=== PATIENT | female | born 1960 ===

== ENCOUNTER 2021-04-27 09:36 | Day surgery (SDC) | payer OTHER ==
[2021-04-26 11:46] VITALS: BMI 31.4
[2021-04-27] MEDS ORDERED: Ketorolac Tromethamine 30 MG/ML VIAL ONE (10:09)
[2021-04-27] MEDS ORDERED: Fentanyl 100 MCG/2 ML VIAL ONE (10:26)
[2021-04-27] MEDS ORDERED: Bupivacaine 0.25% HCL 30 ML VIAL ONE (10:27)
[2021-04-27] MEDS ORDERED: Lidocaine 1% w/Epinephrine 1:100K 20 ML VIAL ONE (10:27)
[2021-04-27] MEDS ORDERED: Dexamethasone 20 MG/5 ML VIAL ONE (10:47)
[2021-04-27] MEDS ORDERED: Ondansetron PF 4 MG/2 ML Vial ONE (10:47)
[2021-04-27] MEDS ORDERED: PROPOFOL 200 MG/20 ML VIAL ONE (10:47)
[2021-04-27] MEDS ORDERED: Lidocaine 1% PF 5 ML VIAL ONE (10:47)
[2021-04-27] MEDS ORDERED: Morphine 2 MG/ML VIAL ONE ×2 (11:46→12:19)
== END 2021-04-27 13:30 | disposition home or self-care (01) ==
LOC: SDC 09:36
PROVIDERS: ATTEND Surgery
PROC: 02HV33Z Insertion of Infusion Device into Superior Vena Cava, Percutaneous Approach (ICD-10-PCS; principal; 2021-04-27)
DX: C50.912 Malignant neoplasm of unspecified site of left female breast (principal); G43.909 Migraine, unspecified, not intractable, without status migrainosus; E66.9 Obesity, unspecified; Z68.31 Body mass index [BMI] 31.0-31.9, adult; Z79.899 Other long term (current) drug therapy
CPT/HCPCS: 71045; C1788; J0690; J1100; J1642; J1885; J2270; J2405; J2704; J3010; S0020

== ENCOUNTER 2021-08-27 09:52 | Day surgery (SDC) | payer SELFPAY ==
[2021-08-27] MEDS ORDERED: Sodium Chloride 0.9% 10 ML ONE (10:02)
[2021-08-27] MEDS ORDERED: diphenhydrAMINE 25 MG CAP PO SCH (10:30)
[2021-08-27] MEDS ORDERED: Acetaminophen 500 MG TAB PO SCH (10:30)
[2021-08-27] MEDS ORDERED: Acetaminophen 500 MG TAB ONE (10:53)
[2021-08-27] MEDS ORDERED: diphenhydrAMINE 25 MG CAP ONE (10:53)
[2021-08-27 13:45] VITALS: BP 138/71; TEMP 98.8
== END 2021-08-27 13:45 | disposition home or self-care (01) ==
LOC: ONC/OP 09:52
PROVIDERS: ATTEND Internal Medicine Hematology & Oncology
PROC: 30233N1 Transfusion of Nonautologous Red Blood Cells into Peripheral Vein, Percutaneous Approach (ICD-10-PCS; principal; 2021-08-27)
DX: D64.9 Anemia, unspecified (principal); D69.6 Thrombocytopenia, unspecified
CPT/HCPCS: 36430; 36591; 86850; 86900; 86901; J1642; P9016